=== PATIENT | female | born 2000 | race Caucasian/White ===

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

== ENCOUNTER 2024-06-24 13:41 | Outpatient (CLI) | payer OTHER, SELFPAY ==
--- NOTE | ~2024-06-24 | US_ITS ---
EXAMINATION: US OB <=14 wk fetus w TV DATE: 06/24/2024 18:58 CDT INDICATION: Amenorrhea COMPARISON: None TECHNIQUE: Real-time transabdominal obstetric ultrasound. FINDINGS: 3 para 1 Last menstrual period is given as 04/25/2024 Estimated date of delivery by last menstrual period is 02/01/2025 The uterus measures 9 x 7 x 7.4 cm. A gestational sac is identified within the uterus, to the right of midline. The mean gestational sac diameter is 2.75 cm. A yolk sac is also noted, measuring 3.3 mm. A pole is identified, with a crown-rump length that measures 1.82 cm, corresponding to an appro ximate gestational age of 8 weeks and 2 days. cardiac activity is identified at a rate of 178 bpm. The right ovary measures 2.8 x 1.4 x 1.7 cm. Despite prolonged interrogation, the left ovary was not visualized. Estimated date of delivery by ultrasound is 02/01/2025 IMPRESSION: Single intrauterine gestation with an approximate gestational age of 8 weeks and 2 days, with c ardiac activity identified. Reviewed, dictated and finalized at location A. IMPRESSION: Single intrauterine gestation with an approximate gestational age of 8 weeks an d 2 days, with cardiac activity identified.
== END 2024-06-24 13:42 | disposition home or self-care (01) ==
LOC: ANHIMG 13:42
PROVIDERS: Visit Provider Nurse Practitioner Obstetrics & Gynecology
DX: N91.2 Amenorrhea, unspecified (principal); Z3A.08 8 weeks gestation of pregnancy
CPT/HCPCS: 76801; 76817

== ENCOUNTER 2024-07-07 16:04 | Outpatient (CLI) | payer OTHER, SELFPAY ==
[2024-07-07 17:02] LABS: Basophils Percent Auto 0.3 % (0.2-1.2); Eosinophils Percent Auto 0.5 % (0-4.4); Hematocrit 36.3 % (37.0-47.0); Hemoglobin 12.4 g/dL (12.0-15.0); Immature Granulocyte Absolute 0.03 K/mm3 (0.00-0.031); Immature Granulocyte Percent A 0.3 % (0-0.5); Lymphocytes Absolute Auto 1.59 K/mm3 (0.9-3.2); Lymphocytes Percent Auto 18.5 % (18.3-44.2); Mean Corpuscular HGB Conc 34.2 g/dl (32-36); Mean Corpuscular Hemoglobin 31.5 pg (26-34); Mean Corpuscular Volume 92.1 fl (80-100); Monocytes Absolute Auto 0.5 K/mm3 (0.1-0.6); Monocytes Percent Auto 5.5 % (2.6-8.5); Neutrophils Absolute Auto 6.4 K/mm3 (1.3-6.7); Neutrophils Percent Auto 74.9 % (45.5-73.1); Platelet Count Result 280 k/mm3 (150-375); Red Blood Count 3.94 M/mm3 (4.2-5.4); Red Cell Distribution Width 12.8 % (11.5-14.5); White Blood Count 8.6 K/mm3 (4.5-10.0)
[2024-07-07 17:09] LABS: Add Urine Microscopic? YES; Appearance Urine Clear (Clear); Bacteria Urine None Seen /hpf; Bilirubin Urine Negative (Negative); Blood Urine Negative (Negative); Color Urine Yellow (Yellow); Glucose Urine UA Negative (Negative); Ketones Urine Trace mg/dL (Negative); Leukocyte Esterase Ur 2+ LEU/UL (Negative); Nitrate Urine Negative (Negative); Non Pathogenic Casts 0-2; Protein Urine Negative (Negative); RBC Urine 0-2 /hpf (0-2); Specific Grav Ur 1.028 (1.001-1.035); Squamous Epithelial Cell Urine Occasional /hpf (Few)
[2024-07-07 17:53] LABS: HIV 1/2 Ab P24 Ag Result Negative (Negative)
[2024-07-07 18:22] LABS: Vitamin D 25 Hydroxy 35.3 ng/mL
[2024-07-07 18:42] LABS: Hepatitis B Surface Antigen Negative (Negative); Rubella IgG Antibody 24.5 IU/ML
[2024-07-07 18:54] LABS: Hepatitis C Virus Antibody Negative (Negative)
[2024-07-07 19:18] LABS: Hemoglobin A1C 5.1 % (<5.7)
[2024-07-08 07:38] LABS: Rapid Plasma Reagin Non-Reactive (NonReactive)
[2024-07-09 00:28] LABS: Hematocrit 39.1 % (35.0-45.0); Hemoglobin 12.5 g/dL (11.7-15.5); RDW 12.3 % (11.0-15.0); Red Blood Cell Count 4.03 Million/uL (3.80-5.10)
[2024-07-09 12:28] LABS: Varicella IgG Antibody 2.38 S/CO
== END 2024-07-07 16:05 | disposition home or self-care (01) ==
LOC: ANHLAB 16:06
PROVIDERS: Visit Provider Obstetrics & Gynecology
DX: Z34.91 Encounter for supervision of normal pregnancy, unspecified, first trimester (principal); Z3A.00 Weeks of gestation of pregnancy not specified
CPT/HCPCS: 36415; 81001; 81220; 81243; 82306; 83021; 83036; 84443; 85025; 86592; 86703; 86762; 86787; 86803; 86850; 86900; 86901; 87077; 87086; 87186; 87340; G0432